=== PATIENT | female | born 1950 | race Caucasian/White ===

== ENCOUNTER → 2016-08-18 | Outpatient (CLI) | payer MEDICARE ==
--- NOTE | 2016-08-19 10:09 | BD ---
EXAMINATION TYPE: MG DEXA axial skeleton. DATE OF EXAM: 08/18/2016 3:33 PM COMPARISON: NONE CLINICAL HISTORY: Height: 63.7 IN Weight: 136 LBS FRAX RISK QUESTIONS: Alcohol (3 or more units per day): NO Family History (Parent hip fracture): NO Glucocorticoids (More than 3mos): NO (Ex: prednisone, prednisolone, methylprednisolone, dexamethasone, and hydrocortisone). History of Fracture in Adulthood: YES FOOT AGE 50 Secondary Osteoporosis: 1. Type 1 Diabetes: NO 2. Hyperthyroidism: NO 3. Menopause before 45: NO 4. Malnutrition: NO 5. Chronic liver disease: NO Rheumatoid Arthritis: NO Current Tobacco Use: NO RISK FACTORS HISTORY OF: Other Fractures since Age 48: YES FOOT FX When: AGE 50 Active: YES Diet low in dairy products/other sources of calcium: YES Postmenopausal woman: AGE 50 Take estrogen and/or progesterone medications: NOT NOW How long: TOOK PREMARIN AGE 50 - 53 MEDICATIONS: Thyroid Medications: YES Which medication: Synthroid How Lon+ YRS Additional Medications: VIT D, SYNTHROID, PRIMIDONE, MIRAPEX, RISTEROL, XANAX EXAM MEASUREMENTS: Bone mineral densitometry was performed using the [employer] System. Bone mineral density as measured about the Lumbar spine is: ----- L1-L4(G/cm2): 0.955 T Score Values are as follows: ----- L2: -2.6 ----- L3: -1.5 ----- L4: -1.2 ----- L1-L4: -1.9 Bone mineral density has: Increased 1.3% since study of: 06/12/2013 Bone mineral density about the R hip (g/cm2): 0.703 Bone mineral density about the L hip (g/cm2): 0.723 T Score values are as follows: -----R Neck: -2.4 -----L Neck: -2.3 -----R Intertrochanter: -2.1 -----L Intertrochanter: -2.1 Bone mineral density has: Decreased -0.5% since study of: 06/12/2013 IMPRESSION: Osteoporosis (T Score less than -2.5) as noted by T Score values at the There is increased fracture risk and therapy is usually indicated based on age. Re-Screen 1-2 years. L2 NOTE: T-SCORE=SD OF THE YOUNG ADULT MEAN.
== END | disposition home or self-care (01) ==
LOC: RADBDWWP 15:31
PROVIDERS: ATTEND Internal Medicine
DX: M81.0 Age-related osteoporosis without current pathological fracture (principal)
CPT/HCPCS: 77080

== ENCOUNTER → 2017-10-27 | Outpatient (CLI) | payer MEDICARE ==
--- NOTE | 2017-10-27 11:52 | XR ---
EXAMINATION TYPE: XR ribs LT DATE OF EXAM: 10/27/2017 COMPARISON: NONE HISTORY: Pain TECHNIQUE: 5 views submitted FINDINGS: The visualized ribs are intact. No acute displaced fracture. There is a 5 mm nodule in the left upper lobe. Recommend chest x-ray with apical lordotic view. IMPRESSION: 1. No acute displaced rib fracture 2. 5 mm left apical lung nodule recommend a chest x-ray with apical lordotic view.
== END | disposition home or self-care (01) ==
LOC: RADXRMAIN 10:45
PROVIDERS: ATTEND Internal Medicine
DX: R91.1 Solitary pulmonary nodule (principal)

== ENCOUNTER → 2017-11-01 | Outpatient (CLI) | payer MEDICARE ==
--- NOTE | 2017-11-01 16:46 | XR ---
EXAMINATION TYPE: XR chest w ap lordotic DATE OF EXAM: 11/01/2017 COMPARISON: Prior left RIBS 10/27/2017 HISTORY: Abnormal x-ray TECHNIQUE: Frontal and lateral views of the chest are obtained with apical lordotic view. FINDINGS: There is no focal air space opacity, pleural effusion, or pneumothorax seen. The cardiac silhouette size is within normal limits. Prominent lung volumes may be indicative of underlying COPD. There is a spinal curvature. Apical pleural thickening is present. The osseous structures are intact . IMPRESSION: No acute cardiopulmonary process. A discrete nodule is not evident. Follow-up could be p erformed to assess for stability.
== END | disposition home or self-care (01) ==
LOC: RADXRMAIN 15:17
PROVIDERS: ATTEND Internal Medicine
DX: R91.8 Other nonspecific abnormal finding of lung field (principal)
CPT/HCPCS: 71047

== ENCOUNTER → 2017-11-15 | Outpatient (CLI) | payer MEDICARE ==
--- NOTE | 2017-11-17 09:07 | MM ---
Reason for exam: screening (asymptomatic). Last mammogram was performed 1 year and 5 months ago. History: Patient is postmenopausal and has history of other cancer at age 55. Family history of breast cancer in mother at age 50. Took estrogen for 8 years 8 months beginning at age 51. Physical Findings: A clinical breast exam by your physician is recommended on an annual basis and results should be correlated with mammographic findings. MG 3D Screening Mammo W/Cad Bilateral CC and MLO view(s) were taken. Prior study comparison: June 29, 2016, bilateral MG screening mammo w CAD. October 23, 2015, right breast MG 3d diag mammo w/cad RT. The breast tissue is heterogeneously dense. This may lower the sensitivity of mammography. No significant changes when compared with prior studies. ASSESSMENT: Benign, BI-RAD 2 RECOMMENDATION: Routine screening mammogram of both breasts in 1 year.
== END | disposition home or self-care (01) ==
LOC: RADMAMWWP 10:56
PROVIDERS: ATTEND Internal Medicine
DX: Z12.31 Encounter for screening mammogram for malignant neoplasm of breast (principal)
CPT/HCPCS: 77063; 77067

== ENCOUNTER → 2018-08-28 | Outpatient (CLI) | payer MEDICARE | END | disposition home or self-care (01) | LOC: RADECHMAIN 12:28 | PROVIDERS: ATTEND Internal Medicine | DX: R00.2 Palpitations (principal) | CPT/HCPCS: 93270; 93271 ==

== ENCOUNTER → 2019-04-21 | Outpatient (CLI) | payer MEDICARE ==
--- NOTE | 2019-04-23 10:33 | MM ---
Reason for exam: screening (asymptomatic). Last mammogram was performed 1 year and 5 months ago. History: Patient is postmenopausal and has history of other cancer at age 55. Family history of breast cancer in mother at age 50. Took estrogen for 8 years 8 months beginning at age 51. Physical Findings: A clinical breast exam by your physician is recommended on an annual basis and results should be correlated with mammographic findings. MG 3D Screening Mammo W/Cad Bilateral CC and MLO view(s) were taken. Prior study comparison: November 15, 2017, bilateral MG 3d screening mammo w/cad. June 29, 2016, bilateral MG screening mammo w CAD. The breast tissue is heterogeneously dense. This may lower the sensitivity of mammography. There is no discrete abnormality. No significant changes when compared with prior studies. ASSESSMENT: Negative, BI-RAD 1 RECOMMENDATION: Routine screening mammogram of both breasts in 1 year.
== END | disposition home or self-care (01) ==
LOC: RADMAMWWP 09:51
PROVIDERS: ATTEND Internal Medicine
DX: Z12.31 Encounter for screening mammogram for malignant neoplasm of breast (principal)
CPT/HCPCS: 77063; 77067

== ENCOUNTER → 2021-02-10 | Outpatient (CLI) | payer MEDICARE ==
--- NOTE | 2021-02-11 14:42 | BD ---
EXAMINATION TYPE: Axial Bone Density DATE OF EXAM: 02/10/2021 COMPARISON: NONE CLINICAL HISTORY: Osteoporosis Height: 5 FT 4 IN Weight: 136 FRAX RISK QUESTIONS: Alcohol (3 or more units per day): NO Family History (Parent hip fracture): NO Glucocorticoids (More than 3mos): NO (Ex: prednisone, prednisolone, methylprednisolone, dexamethasone, and hydrocortisone). History of Fracture in Adulthood: YES Secondary Osteoporosis: 1. Type 1 Diabetes: NO 2. Hyperthyroidism: NO 3. Menopause before 45: NO 4. Malnutrition: NO 5. Chronic liver disease: NO Rheumatoid Arthritis: NO Current Tobacco Use: NO RISK FACTORS HISTORY OF: Surgery to Spine/Hip(right/left)/Wrist (right/left): NO Family History of Osteoporosis: NO Active: YES Diet low in dairy products/other sources of calcium: NO Postmenopausal woman: TOTAL HYST AGE 51 Take estrogen and/or progesterone medications: TOOK HRT FROM AGE [age] Lost more than 2 inches in height since high school: NO MEDICATIONS: Thyroid Medications: YES Which medication: LEVOTHYROXINE How Lon YEARS Additional Medications: LEVOTHYROXINE, PRIMIDONE, VIT D, ALPRAZOLAM, PRAM IPA OLE,TEMAZEPAM Additional History: EXAM MEASUREMENTS: Bone mineral densitometry was performed using the [employer] System. Bone mineral density as measured about the Lumbar spine is: ----- L1-L4(G/cm2): 0.913 T Score Values are as follows: ----- L2: -3.0 ----- L3: -2.2 ----- L4: -1.4 ----- L1-L4: -2.2 Bone mineral density has: DECREASED -4.3 % since study of: 2016 Bone mineral density about the R hip (g/cm2): 0.662 Bone mineral density about the L hip (g/cm2): 0.683 T Score values are as follows: -----R Neck: -2.7 -----L Neck: -2.6 -----R Total: -2.5 -----L Total: -2.2 Bone mineral density has: DECREASED -4.6 % since study of: 2016 IMPRESSION: Osteoporosis (T Score less than -2.5). There is increased fracture risk and therapy is usually indicated based on age. Re-Screen 1-2 years. NOTE: T-SCORE=SD OF THE YOUNG ADULT MEAN.
--- NOTE | 2021-02-13 13:31 | MM ---
Reason for exam: screening (asymptomatic). Last mammogram was performed 1 year and 10 months ago. History: Patient is postmenopausal and has history of other cancer at age 55. Family history of breast cancer in mother at age 50. Took estrogen for 8 years 8 months beginning at age 51. Physical Findings: A clinical breast exam by your physician is recommended on an annual basis and results should be correlated with mammographic findings. MG Screening Mammo w CAD Bilateral CC and MLO view(s) were taken. Prior study comparison: April 21, 2019, bilateral MG 3d screening mammo w/cad. November 15, 2017, bilateral MG 3d screening mammo w/cad. The breast tissue is heterogeneously dense. This may lower the sensitivity of mammography. ASSESSMENT: Benign, BI-RAD 2 RECOMMENDATION: Routine screening mammogram of both breasts in 1 year.
== END | disposition home or self-care (01) ==
LOC: RADMAMWWP 13:57
PROVIDERS: ATTEND Internal Medicine
DX: Z12.31 Encounter for screening mammogram for malignant neoplasm of breast (principal); Z78.0 Asymptomatic menopausal state; Z80.3 Family history of malignant neoplasm of breast; Z79.818 Long term (current) use of other agents affecting estrogen receptors and estrogen levels
CPT/HCPCS: 77067; 77080

== ENCOUNTER → 2022-12-28 | Outpatient (CLI) | payer MEDICARE ==
--- NOTE | 2022-12-29 08:59 | MM ---
Reason for Exam: Screening (asymptomatic). Last mammogram was performed 1 year(s) and 11 month(s) ago. Patient History: Menarche at age 11. First Full-Term at age 19. Left ovary removed at age 51. Right ovary removed at age 51. Hysterectomy at age 51. Postmenopausal. Other cancer, age 55. Estrogen for 8 years, 8 months, from age 51 until age 59. Mother had breast cancer, age 50. Risk Values: Fatou 5 year model risk: 3.4%. NCI Lifetime model risk: 7.7%. Prior Study Comparison: 11/15/2017 Bilateral Screening Mammogram, [facility]. 04/21/2019 Bilateral Screening Mammogram, [facility]. 02/10/2021 Bilateral Screening Mammogram, [facility]. Tissue Density: The breast tissue is heterogeneously dense. This may lower the sensitivity of mammography. Findings: Analyzed By CAD. There is no suspicious group of microcalcifications or new suspicious mass in either breast. Benign dystrophic calcification within the left breast. Overall Assessment: Benign, BI-RAD 2 Management: Screening Mammogram of both breasts in 1 year. A clinical breast exam by your physician is recommended on an annual basis and results should be correlated with mammographic findings. Electronically signed and approved by: Kirit Ellis D.O.
== END | disposition home or self-care (01) ==
LOC: RADMAMWWP 15:49
PROVIDERS: ATTEND Internal Medicine
DX: Z12.31 Encounter for screening mammogram for malignant neoplasm of breast (principal); Z78.0 Asymptomatic menopausal state; Z90.721 Acquired absence of ovaries, unilateral; Z80.3 Family history of malignant neoplasm of breast
CPT/HCPCS: 77063; 77067

== ENCOUNTER → 2024-02-02 | Outpatient (CLI) | payer MEDICARE ==
--- NOTE | 2024-02-06 07:53 | MM ---
Reason for Exam: Screening (asymptomatic). Last mammogram was performed 1 year(s) and 1 month(s) ago. Patient History: Menarche at age 11. First Full-Term at age 19. Left ovary removed at age 51. Right ovary removed at age 51. Hysterectomy at age 51. Postmenopausal. Other cancer, age 55. Estrogen for 8 years, 8 months, from age 51 until age 59. Mother had breast cancer, age 50. Risk Values: Fatou 5 year model risk: 3.4%. NCI Lifetime model risk: 7.2%. Prior Study Comparison: 04/21/2019 Bilateral Screening Mammogram, [facility]. 02/10/2021 Bilateral Screening Mammogram, [facility]. 12/28/2022 Bilateral MG 3D screening mammo w/cad, [facility]. Tissue Density: The breasts are heterogeneously dense, which may obscure small masses. Findings: Analyzed By CAD. There is no suspicious group of microcalcifications or new suspicious mass in either breast. Overall Assessment: Benign, BI-RAD 2 Management: Screening Mammogram of both breasts in 1 year. . Patient should continue monthly self-breast exams. A clinical breast exam by your physician is recommended on an annual basis. This exam should not preclude additional follow-up of suspicious palpable abnormalities. Note on Fatou scores and lifetime risk: 1. A Fatou score greater than 3% is considered moderate risk. If this is the case, consider specialist referral to assess eligibility for a risk reducing agent. 2. If overall lifetime risk for the development of breast cancer is 20% or higher, the patient may qualify for future screening with alternating mammogram and breast MRI. Electronically signed and approved by: Twan Tucker M.D. Radiologis
== END | disposition home or self-care (01) ==
LOC: RADMAMWWP 14:21
PROVIDERS: ATTEND Internal Medicine
DX: Z12.31 Encounter for screening mammogram for malignant neoplasm of breast (principal); Z78.0 Asymptomatic menopausal state; Z80.3 Family history of malignant neoplasm of breast; R92.333 Mammographic heterogeneous density, bilateral breasts
CPT/HCPCS: 77063; 77067

== ENCOUNTER → 2025-02-19 | Outpatient (CLI) | payer MEDICARE ==
--- NOTE | 2025-02-19 14:40 | MM ---
Reason for Exam: Screening (asymptomatic). Last mammogram was performed 1 year(s) and 1 month(s) ago. Patient History: Menarche at age 11. First Full-Term at age 19. Left ovary removed at age 51. Right ovary removed at age 51. Hysterectomy at age 51. Postmenopausal. Other cancer, age 55. Estrogen for 8 years, 8 months, from age 51 until age 59. Mother had breast cancer, age 50. Risk Values: Fatou 5 year model risk: 3.4%. NCI Lifetime model risk: 6.8%. Prior Study Comparison: 02/10/2021 Bilateral Screening Mammogram, [facility]. 12/28/2022 Bilateral MG 3D screening mammo w/cad, [facility]. 02/02/2024 Bilateral MG 3D screening mammo w/cad, [facility]. Tissue Density: The breasts are heterogeneously dense, which may obscure small masses. Findings: Analyzed By CAD. Benign-appearing bilateral axillary lymph nodes are redemonstrated. There is no suspicious group of microcalcifications or new suspicious mass in either breast. Overall Assessment: Negative, BI-RAD 1 Management: Screening Mammogram of both breasts in 1 year. . Patient should continue monthly self-breast exams. A clinical breast exam by your physician is recommended on an annual basis. This exam should not preclude additional follow-up of suspicious palpable abnormalities. Note on Fatou scores and lifetime risk: 1. A Fatou score greater than 3% is considered moderate risk. If this is the case, consider specialist referral to assess eligibility for a risk reducing agent. 2. If overall lifetime risk for the development of breast cancer is 20% or higher, the patient may qualify for future screening with alternating mammogram and breast MRI. [facility], , 02/19/2025 2:36 PM. Electronically signed and approved by: Dino Pierre M.D.
== END | disposition home or self-care (01) ==
LOC: RADMAMWWP 13:21
PROVIDERS: ATTEND Internal Medicine
DX: Z12.31 Encounter for screening mammogram for malignant neoplasm of breast (principal); R92.333 Mammographic heterogeneous density, bilateral breasts; Z78.0 Asymptomatic menopausal state; Z80.3 Family history of malignant neoplasm of breast
CPT/HCPCS: 77063; 77067